=== PATIENT | female | born 2000 | race Caucasian/White ===

== ENCOUNTER 2019-02-11 13:00 | Emergency (ER) | payer MEDICAID ==
[2019-02-11] MEDS ORDERED: NORMAL SALINE 1000 ML 1,000 ML IV ONE (14:23)
--- NOTE | 2019-02-11 14:25 | ER Document Report ---
ED Medical Screen (RME) - General Chief Complaint: Abdominal Cramping Stated Complaint: ABDOMINAL CRAMPING Time Seen by Provider: 02/11/19 14:23 Mode of Arrival: Ambulatory Information source: Patient Notes: Patient reports left lower quadrant pelvic pain that started yesterday. Patient reports nausea and vomiting x1 episode today. Patient reports having a positive test at home. Patient denies any urinary symptoms. Patient reports having a D&C in December of this year. I have greeted and performed a rapid initial assessment of this patient. A comprehensive ED assessment and evaluation of the patient, analysis of test results and completion of the medical decision making process will be conducted by additional ED providers. TRAVEL OUTSIDE OF THE [place] IN LAST 30 DAYS: No - Related Data Allergies/Adverse Reactions: No Known Allergies Allergy (Verified 02/11/19 13:10) Past Medical History - Social History Frequency of alcohol use: None Drug Abuse: None Renal/ Medical History: Denies: Hx Peritoneal Dialysis Past Surgical History: Reports: Hx Gynecologic Surgery - D&C Physical Exam - Vital signs Vitals: Temp Pulse Resp BP Pulse Ox 97.4 F 82 16 127/75 H 100 02/11/19 13:32 02/11/19 13:32 02/11/19 13:32 02/11/19 13:32 02/11/19 13:32 - Abdominal Tenderness: Tender - Left lower pelvic Course - Vital Signs Vital signs: Temp Pulse Resp BP Pulse Ox 97.4 F 82 16 127/75 H 100 02/11/19 13:32 02/11/19 13:32 02/11/19 13:32 02/11/19 13:32 02/11/19 13:32
[2019-02-11 15:47] LABS: ABSOLUTE EOSINOPHILS # (AUTO) 0.1 10^3/uL (0.0-0.6); ABSOLUTE LYMPHOCYTES (AUTO) 2.8 10^3/uL (0.5-4.7); ABSOLUTE MONOCYTES (AUTO) 0.8 10^3/uL (0.1-1.4); ABSOLUTE NEUT (AUTO) 7.6 10^3/uL (1.7-8.2); BASOPHILS % (AUTO) 0.4 % (0-2); EOSINOPHILS % (AUTO) 0.6 % (0-6); HEMATOCRIT 36.9 % (36.0-47.0); HEMOGLOBIN 12.5 g/dL (12.0-15.5); LYMPHOCYTES % (AUTO) 24.6 % (13-45); MEAN CORPUSCULAR HEMOGLOBIN 29.3 pg (27.0-33.4); MEAN CORPUSCULAR HGB CONC 33.7 g/dL (32.0-36.0); MEAN CORPUSCULAR VOLUME 87 fl (80-97); MONOCYTES % (AUTO) 7.2 % (3-13); PLATELET COUNT 325 10^3/uL (150-450); RED BLOOD COUNT 4.24 10^6/uL (3.72-5.28); SEGMENTED NEUTROPHILS % (AUTO) 67.2 % (42-78); TOTAL CELLS COUNTED % (AUTO) 100 %; WHITE BLOOD COUNT 11.3 10^3/uL (4.0-10.5)
[2019-02-11 15:49] LABS: APPEARANCE,URINE CLOUDY; BILIRUBIN,URINE NEGATIVE (NEGATIVE); COLOR,URINE YELLOW; GLUCOSE, URINE NEGATIVE (NEGATIVE); KETONES,URINE TRACE mg/dL (NEGATIVE); LEUKOCYTE ESTERASE,URINE NEGATIVE (NEGATIVE); NITRITE,URINE NEGATIVE (NEGATIVE); PROTEIN,URINE NEGATIVE (NEGATIVE); URINE SPECIFIC GRAVITY 1.025; UROBILINOGEN,URINE NEGATIVE mg/dL (<2.0)
[2019-02-11 16:09] LABS: ALANINE AMINOTRANSFERASE 19 U/L (5-35); ALBUMIN 4.3 g/dL (3.7-5.6); ALKALINE PHOSPHATASE 64 U/L (50-135); ANION GAP 8 (5-19); ASPARTATE AMINO TRANSFERASE 21 U/L (5-30); BILIRUBIN,DIRECT 0.2 mg/dL (0.0-0.4); BILIRUBIN,TOTAL 0.6 mg/dL (0.2-1.3); BLOOD UREA NITROGEN 8 mg/dL (7-20); CALCIUM 9.6 mg/dL (8.4-10.2); CARBON DIOXIDE 26 mmol/L (22-30); CHLORIDE 104 mmol/L (98-107); GLUCOSE 83 mg/dL (75-110); POTASSIUM 4.4 mmol/L (3.6-5.0); SODIUM 138.1 mmol/L (137-145); TOTAL PROTEIN 7.3 g/dL (6.3-8.2)
--- NOTE | 2019-02-11 17:46 | RADIOLOGY REPORT (SQ) ---
EXAM DESCRIPTION: U/S OB TRANSVAGINAL W/O DOP COMPLETED DATE/TIME: 02/11/2019 5:12 pm REASON FOR STUDY: LLQ pain COMPARISON: None. TECHNIQUE: Transvaginal static and realtime grayscale images acquired of the pelvis. Additional chuy cted spectral and color Doppler images recorded. All images stored on PACs. CLINICAL AGE: Unknown [id number] LIMITATIONS: None. FINDINGS: UTERUS: No masses. No anomalies. GESTATIONAL SAC: Normal shape. YOLK SAC: No POLE: None present. RIGHT ADNEXA: Normal ovary with normal vascular flow. Trace/small amount adnexal free fluid. No adnexal masses. LEFT ADNEXA: Normal ovary with normal vascular flow. No adnexal free fluid. No adnexal masses. A 4.5 x 4.1 x 3.8 cm simple cyst/dominant follicle is demonstrated. FREE FLUID: A small amount of free fluid is seen within the pelvic cul-de-sac. OTHER: No other significant finding. IMPRESSION: POSSIBLE EARLY INTRAUTERINE . CONSIDER F/U BHCG AND/OR ULTRASOUND FOR VERIFICATION AND TO EXCLUDE ECTOPIC . Trimester of : First - 0 to 13 weeks. TECHNICAL DOCUMENTATION: JOB ID: [id number] [employer]- All Rights Reserved Reading location - IP/workstation name: [email or web address]
--- NOTE | 2019-02-11 18:05 | ER Document Report ---
ED General - General Chief Complaint: Abdominal Cramping Stated Complaint: ABDOMINAL CRAMPING Time Seen by Provider: 02/11/19 14:23 Primary Care Provider: EDWIN HERNANDEZ MD [ACTIVE STAFF] - 02/17/19 Mode of Arrival: Ambulatory Information source: Patient Notes: Patient reports left lower quadrant pelvic pain that started yesterday. Describes it as a intermittent cramping pain. Denies any aggravating or alleviating factors. Patient reports nausea and vomiting x1 episode today. Patient reports having a positive test at home. Patient denies any ur inary symptoms. Patient reports having a D&C in December of this year. TRAVEL OUTSIDE OF THE [place] IN LAST 30 DAYS: No - HPI Onset: Other Onset/Duration: Gradual, Intermittent Quality of pain: Cramping Severity: Mild Associated symptoms: Nausea, Vomiting. denies: Body/muscle aches, Chest pain, Chills, Fever, Shortness of breath, Sweating Exacerbated by: Denies Relieved by: Denies Similar symptoms previously: Yes Recently seen / treated by doctor: No - Related Data Allergies/Adverse Reactions: No Known Allergies Allergy (Verified 02/11/19 13:10) Past Medical History - General Information source: Patient - Social History Smoking Status: Former Smoker Frequency of alcohol use: None Drug Abuse: None Lives with: Family Family History: Reviewed & Not Pertinent Patient has suicidal ideation: No Patient has homicidal ideation: No - Medical History Medical History: Negative Renal/ Medical History: Denies: Hx Peritoneal Dialysis Past Surgical History: Reports: Hx Gynecologic Surgery - D&C Review of Systems - Review of Systems Notes: REVIEW OF SYSTEMS: CONSTITUTIONAL : Denies fever, chills, or sweats. Denies recent illness. Denies weight loss, recent hospitalizations. EENT: Denies visual changes, eye pain. Denies sore throat, oral lesions, difficulty swallowing. CARDIOVASCULAR: Denies chest pain. Denies palpitations. Denies lower extremity edema. RESPIRATORY: Denies cough. Denies shortness of breath, wheezing. GASTROINTESTINAL: Denies abdominal distention. Denies diarrhea. Denies blood in vomitus, stools, or per rectum. Denies black, tarry stools. Denies constipation. GENITOURINARY: Denies difficulty urinating, painful urination, frequency, blo od in urine, or vaginal discharge. MUSCULOSKELETAL: Denies back or neck pain or stiffness. Denies joint pain or swelling. SKIN: Denies rash, lesions or sores. HEMATOLOGIC : Denies easy bruising or bleeding. LYMPHATIC: Denies swollen glands. NEUROLOGICAL: Denies confusion or altered mental status. Denies loss of consciousness. Denies dizziness or lightheadedness. Denies headache. Denies weakness or paralysis. Denies problems difficulty with ambulation, slurred speech. Denies sensory loss, numbness, or tingling. Denies seizures. PSYCHIATRIC: Denies anxiety or stress. Denies depression, suicidal ideation, or homicidal ideation. Denies visual or auditory hallucinations. Physical Exam - Vital signs Vitals: Temp Pulse Resp BP Pulse Ox 97.4 F 82 16 127/75 H 100 02/11/19 13:32 02/11/19 13:32 02/11/19 13:32 02/11/19 13:32 02/11/19 13:32 - Notes Notes: PHYSICAL EXAMINATION: GENERAL: Well-appearing, well-nourished and in no acute distress. HEAD: Atraumatic, normocephalic. EYES: Pupils equal round and reactive to light, extraocular movements intact, conjunctiva are normal. ENT: Nares patent, oropharynx clear without exudates. Moist mucous membranes. NECK: Normal range of motion, supple without lymphadenopathy LUNGS: Breath sounds clear to auscultation bilaterally and equal. No wheezes rales or rhonchi. HEART: Regular rate and rhythm without murmurs ABDOMEN: Soft, nontender, nondistended abdomen. No guarding, no rebound. No masses appreciated. Female : deferred Musculoskeletal: Normal range of motion, no pitting or edema. No cyanosis. NEUROLOGICAL: Cranial nerves grossly intact. Normal speech, normal gait. Kati l sensory, motor exams PSYCH: Normal mood, normal affect. SKIN: Warm, Dry, normal turgor, no rashes or lesions noted. Course - Re-evaluation Re-evalutation: 02/16/19 10:21 Laboratory 02/11/19 02/11/19 02/11/19 15:32 15:32 15:32 WBC 11.3 H RBC 4.24 Hgb 12.5 Hct 36.9 MCV 87 MCH 29.3 MCHC 33.7 RDW 13.0 Plt Count 325 Seg Neutrophils % 67.2 Lymphocytes % 24.6 Monocytes % 7.2 Eosinophils % 0.6 Basophils % 0.4 Absolute Neutrophils 7.6 Absolute Lymphocytes 2.8 Absolute Monocytes 0.8 Absolute Eosinophils 0.1 Absolute Basophils 0.0 Sodium 138.1 Potassium 4.4 Chloride 104 Carbon Dioxide 26 Anion Gap 8 BUN 8 Creatinine 0.56 Est GFR ( Amer) > 60 Est GFR (Non-Af Amer) > 60 Glucose 83 Calcium 9.6 Total Bilirubin 0.6 Direct Bilirubin 0.2 Neonat Total Bilirubin Not Reportable Neonat Direct Bilirubin Not Reportable Neonat Indirect Bili Not Reportable AST 21 ALT 19 Alkaline Phosphatase 64 Total Protein 7.3 Albumin 4.3 Beta HCG, Quant 4052.00 H Total Beta HCG POSITIVE Urine Color Urine Appearance Urine pH Ur Specific [place] Urine Protein Urine Glucose (UA) Urine Ketones Urine Blood Urine Nitrite Urine Bilirubin Urine Urobilinogen Ur Leukocyte Esterase Urine WBC (Auto) Urine RBC (Auto) Squamous Epi Cells Auto Urine Mucus (Auto) Urine Ascorbic Acid Blood Type O POSITIVE Rhogam Indicated RHOGAM NOT INDICATED 02/11/19 15:32 WBC RBC Hgb Hct MCV MCH MCHC RDW Plt Count Seg Neutrophils % Lymphocytes % Monocytes % Eosinophils % Basophils % Absolute Neutrophils Absolute Lymphocytes Absolute Monocytes Absolute Eosinophils Absolute Basophils Sodium Potassium Chloride Carbon Dioxide Anion Gap BUN Creatinine Est GFR ( Amer) Est GFR (Non-Af Amer) Glucose Calcium Total Bilirubin Direct Bilirubin Neonat Total Bilirubin Neonat Direct Bilirubin Neonat Indirect Bili AST ALT Alkaline Phosphatase Total Protein Albumin Beta HCG, Quant Total Beta HCG Urine Color YELLOW Urine Appearance CLOUDY Urine pH 6.0 Ur Specific [place] 1.025 Urine Protein NEGATIVE Urine Glucose (UA) NEGATIVE Urine Ketones TRACE H Urine Blood NEGATIVE Urine Nitrite NEGATIVE Urine Bilirubin NEGATIVE Urine Urobilinogen NEGATIVE Ur Leukocyte Esterase NEGATIVE Urine WBC (Auto) 3 Urine RBC (Auto) 9 Squamous Epi Cells Auto 30 Urine Mucus (Auto) MANY Urine Ascorbic Acid NEGATIVE Blood Type Rhogam Indicated Obstetrics Ultrasound 02/11/19 14:23 IMPRESSION: POSSIBLE EARLY INTRAUTERINE . CONSIDER F/U BHCG AND/OR ULTRASOUND FOR VERIFICATION AND TO EXCLUDE ECTOPIC . Trimester of : First - 0 to 13 weeks. Temp Pulse Resp BP Pulse Ox 98.2 F 81 16 111/72 100 02/11/19 18:23 02/11/19 18:23 02/11/19 18:23 02/11/19 18:23 02/11/19 18:23 18-year-old female presents with left lower abdominal cramping. Reports a test which was positive and confirmed here. Patient has had no vaginal bleeding, vaginal discharge. Does report a miscarriage earlier in the year. Beta hCG today is only 4000 and the transvaginal ultrasound was read as a possible early intrauterine . Patient does have an upcoming appointment with her DIRECTOR OF CARDIOPULMONARY SERVICES in 4 days which she is encouraged to keep. She was provided copies of her ultrasound report and lab work that was performed today. Patient advised to take Tylenol as needed for the cramping. Patient was also informed that if she would experience worsening pain, the start of vaginal bleeding or any other symptoms concerning to her she should return immediately as of right now we are unable to fully exclude an ectopic . Patient expresses understanding of this. Patient was evaluated and treated as appropriate for the patient's presenting symptoms and complaint, with consideration of any critical or life threatening conditions that may be associated with their obtained history and exam as noted above. All results were discussed with patient Patient provided the opportunity to ask questions, and express concerns. Patient was educated on treatments based on their presumed diagnosis as noted above. At this time we will discharge the patient with return precautions and follow-up recommendations. Verbal discharge instructions given a the bedside. Medication warnings reviewed. Patient is in agreement with this plan and has verbalized understanding of return precautions. After careful consideration I feel that that patient can be safely discharged from the emergency department, they were advised to followup with a primary care physician in 2-3 days. Dictation on this chart was performed using voice recognition software and may result in unintended grammatical, spelling, syntax or errors. - Vital Signs Vital signs: Temp Pulse Resp BP Pulse Ox 98.2 F 81 16 111/72 100 02/11/19 18:23 02/11/19 18:23 02/11/19 18:23 02/11/19 18:23 02/11/19 18:23 - Laboratory Result Diagrams: 02/11/19 15:32 02/11/19 15:32 Laboratory results interpreted by me: 02/11/19 02/11/19 02/11/19 15:32 15:32 15:32 WBC 11.3 H Beta HCG, Quant 4052.00 H Urine Ketones TRACE H - Diagnostic Test Radiology reviewed: Image reviewed, Reports reviewed Discharge - Discharge Clinical Impression: Abdominal pain affecting , Early stage of Condition: Good Disposition: HOME, SELF-CARE Instructions: Ectopic Precaution ([facility]), Pelvic Pain in ([facility]), ([facility]) Additional Instructions: Please return to the emergency department if you experience worsening abdominal pain or vaginal bleeding. Please keep your February 17 appointment with your DIRECTOR OF CARDIOPULMONARY SERVICES. Follow up with your [id number] hours for further care or return to the ED IMMEDIATELY if symptoms worsen or you have any concerns. If you cannot afford to follow up with your primary care physician a list of low cost clinics have been provided at the end of your discharge papers as well. Most prescribed medications have multiple side effects. The safest thing to do is when filling your prescription speak to your pharmacist regarding possible interactions with your normal home medications and over the counter medications such as Ibuprofen, Tylenol, Benadryl. If you experience any symptoms that cause you discomfort or concern you should discontinue the medication immediately and return to the emergency room or call your primary care physician. Forms: Return to Work Referrals: EDWIN HERNANDEZ MD [ACTIVE STAFF] - 02/17/19
[2019-02-11 18:25] VITALS: BP 111/72
== END 2019-02-11 18:25 | disposition home or self-care (01) ==
LOC: ER 13:00
DX: O26.899 Other specified pregnancy related conditions, unspecified trimester (principal); R10.2 Pelvic and perineal pain; R10.32 Left lower quadrant pain; O21.9 Vomiting of pregnancy, unspecified; Z3A.00 Weeks of gestation of pregnancy not specified; Z87.891 Personal history of nicotine dependence
CPT/HCPCS: 99284; 96360; 86900; 86901; 36415; 84702; 85025; 80053; 81001; 76817; J7030